=== PATIENT | male | born 1960 | race Two or more races ===

== ENCOUNTER 2018-03-10 17:50 | Emergency (ER) | payer OTHER ==
[~2018-03-10] VITALS: Ht 170.2 cm; Wt 90.7 kg
[2018-03-10 17:58] VITALS: Ht 170.2 cm; Wt 90.7 kg
[2018-03-10 20:19] VITALS: BP 162/89
== END 2018-03-10 20:19 | disposition home or self-care (01) ==
LOC: ED 17:50
DX: S61.412A Laceration without foreign body of left hand, initial encounter (principal); I10 Essential (primary) hypertension; W26.0XXA Contact with knife, initial encounter; Y93.89 Activity, other specified; Y99.8 Other external cause status; Y92.89 Other specified places as the place of occurrence of the external cause
CPT/HCPCS: 90715; J0696; J1885; J2001

== ENCOUNTER 2019-07-11 23:23 | Emergency (ER) | payer OTHER ==
[~2019-07-11] VITALS: Ht 175.3 cm; Wt 104.3 kg
[2019-07-11 23:48] VITALS: Ht 175.3 cm; Wt 104.3 kg
[2019-07-12 02:17] VITALS: BP 148/89
== END 2019-07-12 02:35 | disposition home or self-care (01) ==
LOC: ED 23:23
DX: M25.562 Pain in left knee (principal); I10 Essential (primary) hypertension; Z98.890 Other specified postprocedural states
CPT/HCPCS: J1885; Q0092